=== PATIENT | male | born 1990 | race Caucasian/White ===

== ENCOUNTER 2017-03-22 08:59 | Emergency (ER) | payer OTHER ==
[2017-03-22 09:25] VITALS: BP 121/75
--- NOTE | 2017-03-22 09:33 | UC ---
Eye Complaint HPI - HPI Summary HPI Summary: right eye lid near lashes painful and swollen began yesterday - History of Current Complaint Chief Complaint: UCEye Stated Complaint: RT EYE COMPLAINT Time Seen by Provider: 03/22/17 09:12 Hx Obtained From: Patient Onset/Duration: Sudden Onset, Lasting Days - 1, Still Present Timing: Constant Severity Initially: Mild Severity Currently: Mild Pain Intensity: 1 Pain Scale Used: 0-10 Numeric Location of Injury: Eye Lid (upper) Aggravating Factor(s): Nothing Alleviating Factor(s): Nothing Associated Signs And Symptoms: Positive: Drainage (Clear) - Allergies/Home Medications Allergies/Adverse Reactions: Allergies Allergy/AdvReac Type Severity Reaction Status Date / Time almond Allergy Hives Uncoded 03/22/17 09:21 Home Medications: Home Medications Cetirizine* [ZyrTEC 10 MG TAB*] 10 mg PO DAILY 03/22/17 [History Confirmed 03/22] PMH/Surg Hx/FS Hx/Imm Hx Previously Healthy: Yes - Surgical History Surgical History: Yes Surgery Procedure, Year, and Place: Right Thumb Ligament Repair, 2011, [place] - Family History Known Family History: Positive: None - Social History Occupation: Employed Full-time Lives: With Family Alcohol Use: Rare Substance Use Type: None Smoking Status (MU): Never Smoked Tobacco When Did the Patient Quit Smoking/Using Tobacco: 5-6 years ago - Immunization History Most Recent Influenza Vaccination: Not the Season Review of Systems Constitutional: Negative Skin: Negative Eyes: Eye Redness - upper lid near lashes ENT: Negative Respiratory: Negative Cardiovascular: Negative Gastrointestinal: Negative Genitourinary: Negative Motor: Negative Neurovascular: Negative Musculoskeletal: Negative Neurological: Negative Psychological: Negative All Other Systems Reviewed And Are Negative: Yes Physical Exam Triage Information Reviewed: Yes Appearance: Well-Appearing, No Pain Distress, Well-Nourished Vital Signs: Initial Vital Signs Temp 98.1 F 03/22/17 09:19 Pulse 82 03/22/17 09:19 Resp 16 03/22/17 09:19 BP 121/75 03/22/17 09:19 Pulse Ox 100 03/22/17 09:19 Vital Signs Reviewed: Yes Eye Exam: Normal Eyes: Positive: Conjunctiva Clear, Discharge ENT Exam: Normal ENT: Positive: Normal ENT inspection, Hearing grossly normal. Negative: Nasal congestion, Nasal drainage, Trismus, Muffled/hoarse voice Dental Exam: Normal Neck exam: Normal Neck: Positive: Supple, Nontender, No Lymphadenopathy Respiratory Exam: Normal Respiratory: Positive: Chest non-tender, No respiratory distress, No accessory muscle use Cardiovascular Exam: Normal Cardiovascular: Positive: RRR, Pulses Normal, Brisk Capillary Refill Musculoskeletal Exam: Normal Musculoskeletal: Positive: Strength Intact, ROM Intact Neurological Exam: Normal Neurological: Positive: Alert, Muscle Tone Normal Psychological Exam: Normal Skin Exam: Normal Skin: Positive: Other - no open area or sores Eye Complaint Course/Dx - Course Course Of Treatment: warm compress, polytrim eye drops. follow with pcp - Differential Dx/Diagnosis Differential Diagnosis/HQI/PQRI: Conjunctivitis, Periorbital Cellulitis, Orbital Cellulitis, Uveitis, Other - stye Provider Diagnoses: OD Stye Discharge - Discharge Plan Condition: Stable Disposition: HOME Prescriptions: Polymyx/Trimethoprim OPTH* [Polytrim OPHTH*] 1 drop RIGHT EYE Q4H #1 btl Patient Education Materials: Stye (ED), Warm Compress or Soak (ED) Forms: *Work Release Referrals: Caity Finney [Primary Care Provider] - If Needed
== END 2017-03-22 09:34 | disposition home or self-care (01) ==
LOC: UCCORT 08:59
DX: H00.011 Hordeolum externum right upper eyelid (principal); Z91.018 Allergy to other foods
CPT/HCPCS: 99212; G0463